=== PATIENT | female | born 1975 | race Caucasian/White ===

== ENCOUNTER 2024-09-12 21:27 | Day surgery (SDC) | payer BC, SELFPAY ==
[2024-09-12 15:50] VITALS: BP 187/105
[2024-09-12 16:11] LABS: % Basophils 0.3 % (0-2); % Eosinophils 2.7 % (0-6); % Immature Granulocytes 0.5 % (0-0.5); % Monocytes 6.1 % (1.7-9.3); % Neutrophils 73.4 % (42.2-75.2); Absolute Eosinophils 0.3 10^3/uL (0-0.7); Absolute Immature Granulocytes 0.1 10^3/uL (0-0.05); Absolute Monocytes 0.7 10^3/uL (0.1-0.6); Absolute Neutrophils 8.6 10^3/uL (1.4-6.5); Hematocrit 32.3 % (37.0-47.0); Hemoglobin 10.5 g/dL (12.0-16.0); Mean Corp Hgb Conc. 32.5 g/dL (33.0-37.0); Mean Corpuscular Hgb 25.2 pg (27.0-31.0); Mean Corpuscular Volume 77.6 fL (81.0-99.0); Mean Platelet Volume 9.2 fL (7.4-10.4); Nucleated Red Blood Cells % 0 %; Platelet Count 255 10^3/uL (130-400); Red Blood Cell Count 4.16 10^6/uL (4.20-5.40); Red Cell Dist. Width 15.4 % (11.5-14.5); White Blood Cell Count 11.7 10^3/uL (4.8-10.8)
[2024-09-12 16:28] LABS: ALT (SGPT) 27 U/L (0-35); AST (SGOT) 21 U/L (14-36); Albumin 4.1 g/dl (3.5-5.0); Alkaline Phosphatase 73 U/L (38-126); Blood Urea Nitrogen 9 mg/dl (7-17); Calcium 9.3 mg/dl (8.4-10.2); Carbon Dioxide 26 mmol/L (22-30); Chloride 107 mmol/L (98-107); Glucose 105 mg/dl (70-99); Lipase 83 U/L (23-300); Potassium 4.1 mmol/L (3.5-5.1); Sodium 140 mmol/L (135-145); Total Bilirubin 0.4 mg/dl (0.2-1.3); Total Protein 6.5 g/dl (6.3-8.2); eGFR > 60.00
[2024-09-12 20:00] VITALS: BP 167/91
[2024-09-12 20:40] VITALS: BMI 39.3
[2024-09-12] MEDS: MERREM 1000 MG IV (20:48)
[2024-09-12] MEDS: DILAUDID 0.5 MG IV (21:00)
--- NOTE | 2024-09-12 21:09 | HPS.HSE ---
Addendum entered and electronically signed by Sven Patel MD 09/13/24 10:28:
I saw and examined the patient independently.
The Welder/Fabricator's note was reviewed and I agree with the note, assessment and plan except where noted below.
Comment: This is a 49-year-old female with medical history of morbid obesity who presents with a 1 week history of abdominal pain. She got an outpatient CT scan on Friday which demonstrated multiple gallstones and a mildly distended gallbladder. I
was able to review her CT imaging with her and her as well as the report through her [facility]. She got an ultrasound here which showed some mild pericholecystic fluid and once again and distended gallbladder. She has a mild leukocytosis
but the remainder of her blood work is normal. On exam she is extremely tender to palpation in the right upper quadrant, and as of this morning febrile and tachycardic concerning for evolving sepsis from acute calculus cholecystitis.
Will plan for a laparoscopic cholecystectomy in the OR today.
N.p.o., IV fluids, IV antibiotics.
Risks/Benefits/Alternatives, expected postoperative course and possible complications (bleeding, infection, injury to surrounding structures, acute/chronic pain) discussed at length. Patient wishes to proceed with surgery. All questions answered.
Consent obtained.
I spent 70 minutes in total for the care of this patient today including direct patient care and counseling, reviewing labs, imaging, coordination of care, as well as documentation.
Original Note:
Family Physician
-
Family Physician: [facility] Dr. Burnett in [place]
Chief Complaint
-
abdominal pain
History of Present Illness
This is a very pleasant 49 year old female with about 10 days worth of abdominal symptoms she originally attributed to anxiety induced discomfort. She started to feel bloated after drinking water and noticed increased symptoms of abdominal fullness,
nausea, pain with radiation to the back. Ibuprofen and dietary adjustments kept her symptoms under control. She followed up with her physician (saw Adeola MORALES) and had a Ct of abdomen this past Friday which found multiple gallstones. She
was told to come to the ED for evaluation with concern for gallstone blocking one of her ducts. She was ruled out prior for UTI and her outpatient blood work showed her iron studies were low again which is chronic problem and she takes prn iron
tablets. During this past week she has been sleeping more than usual and the abdominal pain now presents as a band across her upper abdomen radiating to her back. Minimal PMH with pulmonary or cardiac issues although her bp has been slightly
elevated and she is trending this at home.
Medical History
Past Medical History
Past Medical History: Reports HTN (trending readings twice weekly ) and Other
Additional Past Medical History:
Iron deficiency anemia, chronic R knee osteoarthritis with physical therapy.
Past Surgical History: Reports Appendectomy, (x2) and Gynocological (D+C 2 weeks ago)
Social History
Tobacco: Non-smoker
Alcohol: Occasional
Drug: None
Personal:
Living: With Family
Employment: Employed
Family History
Family History: Not pertinent
Allergies / Home Medications
Allergies reflects when Allergies were last updated in [facility].
Home Medications with original date entered in [facility]
Allergy/Medication List:
Allergies
Allergy/AdvReac Type Severity Reaction Status Date / Time
cefazolin Allergy Nausea / Verified 09/12/24 15:54
Vomiting
Penicillins Allergy Rash Verified 09/12/24 15:54
Sulfa (Sulfonamide Allergy Rash Verified 09/12/24 15:54
Antibiotics)
Tetracyclines Allergy Rash Verified 09/12/24 15:54
Review of Systems
-
History Source: Patient and Coordinated Provider
Constitutional: Reports Fatigue
EENT: Reports No Symptoms
Respiratory: Reports No Symptoms
Cardiac: Reports No Symptoms
Abdomen/GI: Reports Abdominal Pain (transverse upper abdomen radiating to her back)
: Reports No Symptoms
Musculoskeletal: Reports Joint Pain (right knee)
Skin: Reports No Symptoms
Neurological: Reports No Symptoms
Endocrine: Reports No Symptoms
Hematologic/Lymphatic: Reports No Symptoms
Psych: Reports No Symptoms
Physical Exam
Vital Signs
Vital Signs
Temp Pulse Resp BP Pulse Ox
98.1 F 94 18 167/91 97
09/12/24 15:50 09/12/24 15:50 09/12/24 15:50 09/12/24 20:00 09/12/24 20:15
Physical Exam
General: Well Developed, Well Nourished, No Apparent Distress, Comfortable and Conversant
HEENT: NormoCephalic, Moist mucous membranes and Atraumatic
Respiratory: Clear and Non Labored Respirations
Cardiac: S1/S2 and Regular Rhythm
Breast: Deferred by me
GI: Soft and Tender
Rectal: Deferred by Provider
Genito-urinary: Clear Urine
Musculoskeletal: No Clubbing, No Cyanosis and No Edema
Skin: Warm and Dry
Neuro: Awake, AO x 3, No Motor Deficits and Nonfocal/grossly intact
Hematologic/Lymphatic: No Lymphadenopathy
Psych: Calm
Laboratory Results
-
09/12/24 16:04
09/12/24 16:04
Laboratory Results
Total Bilirubin 0.4 mg/dl (0.2-1.3) 09/12/24 16:04
AST 21 U/L (14-36) 09/12/24 16:04
ALT 27 U/L (0-35) 09/12/24 16:04
Alkaline Phosphatase 73 U/L (38-126) 09/12/24 16:04
Lipase 83 U/L (23-300) 09/12/24 16:04
Data Reviewed
-
Diagnostic Radiology: Report Reviewed by me
CT Scan: Other (CT abdomen done outpatient with [place] physician)
Ultrasound: Report Reviewed by me
Lab Data: Labs Reviewed by me
Old Records: Reviewed
Impression/Plan
-
IMPRESSION: acute cholecystitis
PLAN: This is a very pleasant 49 year old female with about 10 days worth of abdominal symptoms she originally attributed to anxiety induced discomfort. She started to feel bloated after drinking water and noticed increased symptoms of abdominal
fullness, nausea, pain with radiation to the back. Ibuprofen and dietary adjustments kept her symptoms under control. She followed up with her physician and had a Ct of abdomen this past Friday which found multiple gallstones. She was told to come
to the ED for evaluation with concern for gallstone blocking one of her ducts. She was ruled out prior for UTI and her outpatient blood work showed her iron studies were low again which is chronic problem and she takes prn iron tablets. During this
past week she has been sleeping more than usual and the abdominal pain now presents as a band across her upper abdomen radiating to her back. Minimal PMH with pulmonary or cardiac issues although her bp has been slightly elevated and she is trending
this at home.
* Acute cholecystitis: NPO, dilaudid IV prn, anti emetic if needed, Zosyn. CBC CMP in am. Will need to obtain CT scan done outpatient.
*HTN: Trend
*insomnia: CBD gummies at home
*Iron def anemia: followed as outpatient. Continue current regimen at [place].
*DVT proph: oob, ambulate, SCDs, Teds.
*Disposition: FC Admit to general surgery service.
[2024-09-12] MEDS: ZOSYN 50 IV (21:49)
[2024-09-12 22:30] VITALS: BP 138/78; BMI 43.8
--- NOTE | 2024-09-12 22:56 | ED.GENMED ---
History of Present Illness
General
Chief Complaint: Abdominal Pain
Source: patient
Exam Limitations: none
Time Seen by Provider: 09/12/24 18:54
Nursing documentation reviewed up to this point in time: agreed with
History of Present Illness
History of Present Illness:
49-year-old female presenting to the emergency department today with concerns of abdominal pain and abnormal findings on CT scan as an outpatient. Has had right upper quadrant Cristobal pain over the past 10 days worsening throughout the day today.
Had an outpatient CT scan yesterday that showed potential gallstones and was told to come to the ER. Has had some nausea no vomiting.
Past History
Past History
ED Past Medical History: None
Social History
Tobacco: Non-smoker
Alcohol: None
Personal:
Living: with family
Employment: Employed
Review of Systems
Review of Systems
Allergies reviewed?: Yes
All Other Systems: ROS reviewed and negative except as documented in HPI and ROS
Phy Exam
Physical Exam
Physical Exam:
GENERAL: Alert , in no apparent distress
EYE: pupils equal and reactive
NECK: Supple, no significant adenopathy.
ENT: o/p clr, mmm.
CARDIAC: Regular rate and rhythm .
LUNGS: Clear breath sounds bilaterally, no acute respiratory distress, no wheezes/rales/rhonchi
ABDOMEN: Right upper quadrant pain positive Coates sign otherwise soft abdomen
NEUROLOGICAL: Alert and oriented, no focal neuro deficits
SKIN: Warm and dry, skin intact.
MUSCULOSKELETAL: No edema, well perfused.
PSYCH: Normal and appropriate interaction.
Course
Orders/Labs/Results
Orders:
Orders
09/12/24 15:59
US Abdomen Complete/Upper Urgent
Comment:
Reason For Exam: known galstones, r/o obstuction
09/12/24 16:04
Complete Blood Count/With Diff Urgent
Comprehensive Metabolic Panel Urgent
Lipase Urgent
09/12/24 20:20
Cefepime HCl [Maxipime] 2,000 mg IV NOW STA
MetroNIDAZOLE 500 MG/100 ML [Flagyl 500 mg] 100 ml IV NOW
09/12/24 20:27
Meropenem [Merrem] 1,000 mg IV NOW STA
09/12/24 20:38
Sterile Water [Sterile Water For Injection] 10 ml .ROUTE .STK-MED ONE
09/12/24 20:41
Admit/Transfer Patient As Directed
Co-Sign Provider:
Level of Care: Observation services
Assign to:: Medical/Surgical
Physician / Group: [facility]/General surgery
Diagnosis: acute cholecystitis
Code Status As Directed
Resuscitation Status: Full Code
PRN Pain Medication Management As Directed
May give lesser potent ordered pain med per pt: Yes
preference::
Protocol:: Medication orders for pain may be administered in a
manner that supports deferring to patient preference
when the pt is:
- Requesting an ordered lesser potent pain medication.
Least to most potent pain medications are defined
as: acetaminophen < NSAID < tramadol < opioids
(morphine, oxycodone, hydromorphone).
- Requesting a lesser dose of the same medication IF
ORDERED.
- Requesting a less intrusive route of administration
if both routes are prescribed by the provider (PO <
IV).
09/12/24 20:50
Sterile Water [Sterile Water For Injection] 20 ml .ROUTE .STK-MED
09/12/24 20:57
HYDROmorphone [Dilaudid] 0.5 mg IV NOW STA
09/12/24 20:58
HYDROmorphone [Dilaudid] 0.5 mg .ROUTE .STK-MED ONE
09/12/24 22:00
Piperacillin/Tazo 3.375 Gram [Zosyn] 3.375 gram in 50 ml IV Q6H
09/12/24 22:20
HYDROmorphone [Dilaudid] 1 mg IV Q2HPRN PRN
Ondansetron Injectable [Zofran] 4 mg IV Q6HPRN PRN
09/12/24 22:20
Activity As Directed
Activity Level: Out of Bed-Early Mobility
Anti-embolism (CLAY) Hose As Directed
Type: Thigh high
Intake/ Output As Directed
Frequency: Per unit guidelines
Pneumatic Compression Sleeves As Directed
Type: Thigh high
Vital Signs As Directed
Frequency: Per unit guidelines
DX Deep Vein Thrombosis Video Routine
09/13/24 Breakfast
NPO
Allow oral meds: No
Allow clear liquids: No
NPO with Ice Chips: No
Complete Blood Count/No Diff IN AM
Comprehensive Metabolic Panel IN AM
Abnormal Lab Results
09/12/24
16:04
WBC 11.7 H 10^3/uL
(4.8-10.8)
RBC 4.16 L 10^6/uL
(4.20-5.40)
Hgb 10.5 L g/dL
(12.0-16.0)
Hct 32.3 L %
(37.0-47.0)
MCV 77.6 L fL
(81.0-99.0)
MCH 25.2 L pg
(27.0-31.0)
MCHC 32.5 L g/dL
(33.0-37.0)
RDW 15.4 H %
(11.5-14.5)
Abs Immat Gran (auto) 0.1 H 10^3/uL
(0-0.05)
Absolute Neuts (auto) 8.6 H 10^3/uL
(1.4-6.5)
Absolute Monos (auto) 0.7 H 10^3/uL
(0.1-0.6)
Lymphocytes % 17.0 L %
(20.5-51.1)
Glucose 105 H mg/dl
(70-99)
09/12/24 16:04
09/12/24 16:04
Vital Signs
Initial and Last Documented VS:
Initial Vital Signs
Temp Pulse Resp BP Pulse Ox
98.1 F 94 18 187/105 99
09/12/24 15:50 09/12/24 15:50 09/12/24 15:50 09/12/24 15:50 09/12/24 15:50
Last Documented Vital Signs
Temp Pulse Resp BP Pulse Ox
100.3 F 114 20 138/78 99
09/12/24 22:30 09/12/24 22:30 09/12/24 22:30 09/12/24 22:30 09/12/24 22:30
MDM/Problems Addressed
MDM/Problems Addressed:
49-year-old female presenting to the emergency department today with concerns of right upper quadrant abdominal pain intermittently over the past 10 days but worsening today. Outpatient CT scan showing concerning findings for gallstones.
Ultrasound showing possible early cholecystitis. Labs showing slight elevation of 11.7 otherwise labs normal. Case discussed with surgery plan to admit for symptom control IV antibiotics and reassessment in the morning.
*Critical Care Note
Total Time (30-74mins, 75-104mins- exclusive of procedures): Not Applicable
ED Attending Note
-
Portions of this chart may have been created with voice recognition software.� Occasional wrong word or��sound alike� substitutions may have occurred due to the inherent limitations of voice recognition software.
Discharge Plan
Departure
Patient Disposition: Admit
Date of Disposition: 09/12/24
Time of Disposition: 22:58
Admit to: Med/Surg
Admit to doctor: Sandeep
Presentation/result/management discussed w/ accepting MD/DO: Gen Surg
Patient with high blood pressure during this ER visit?: No
Condition: Good
Covid-19: Not Applicable
Discharge Problem:
Acute cholecystitis
Interventions
Interventions:
*Risk Screen - Suicide Last Done: 09/12/24 15:58
*General Assessment Last Done: 09/12/24 15:58
*Neglect/Abuse Screening Last Done: 09/12/24 15:58
*ED- Fall Risk Assessment Last Done: 09/12/24 21:02
*ED COVID-19 Vaccine History Last Done: 09/12/24 15:59
*Nursing Disposition Last Done: 09/12/24 22:13
AM-Cbunbv-Fefsjsucvr Assessment Last Done: 09/12/24 20:41
Discharge Date and Time
Discharge Date/Time: 09/12/24 22:38
[2024-09-13] VITALS (17 sets, daily range): BP systolic 30–177; BP diastolic 51–116
[2024-09-13] MEDS: ZOSYN IV (02:43)
[2024-09-13] MEDS: OFIRMEV 100 IV (03:04)
[2024-09-13 05:39] LABS: Glucose - Point of Care 102 mg/dl (70-99)
[2024-09-13] MEDS: ZOFRAN 4 MG IV (05:53)
[2024-09-13] MEDS: NSS 1000 IV ×3 (05:55→21:23)
--- NOTE | 2024-09-13 06:02 | W.PN.UPDATE ---
Update Note
Progress Note Update
Patient found in bed rigoring by nursing staff on rounds. Rectal temp 102F. IV ibuprofen given (ofirmiv given at 0300 for pain-she doesn't tolerate dilaudid) IV abts changed to Levaquin and Flagyl (she has allergies to sulfa, penicillins) she has
taken levaquin in past without problem. NS IVF begun. See Rapid response documentation. Blood cultures and morning labs drawn as previously ordered. Added to telemetry.
[2024-09-13] MEDS: CALDOLOR 104 MG IV (06:06)
--- NOTE | 2024-09-13 06:10 | RR ---
Addendum entered by Mony Farfan 09/13/24 06:30:
lactic 6.2 Pt no longer with rigors HRs 150s on telemetry. PRICING LEAD aware.
Original Note:
Pt found with rigors, HR on pulse ox going up to 160s, unable to obtain BP due to rigors, fingernails cyanotic, LES with mottled appearance. pt appears SOB, vomiting, dizzy. Rectal temp 102. Obtained blood glucose 102, pulse ox 96% applied 2 L NC.
Called rapid response. NSS 125/hr initiated, IV zofran given, labs sent. Pt placed on telemetry.
A Rapid Response was called on this patient, please see Rapid Response form.
[2024-09-13 06:11] LABS: Hematocrit 33.5 % (37.0-47.0); Hemoglobin 10.7 g/dL (12.0-16.0); Mean Corp Hgb Conc. 31.9 g/dL (33.0-37.0); Mean Corpuscular Hgb 24.9 pg (27.0-31.0); Mean Corpuscular Volume 77.9 fL (81.0-99.0); Mean Platelet Volume 9.3 fL (7.4-10.4); Platelet Count 262 10^3/uL (130-400); Red Cell Dist. Width 15.7 % (11.5-14.5); White Blood Cell Count 7.5 10^3/uL (4.8-10.8)
[2024-09-13 06:26] LABS: Lactic Acid 6.2 mmol/L (0.7-2.0)
[2024-09-13] MEDS: FLAGYL 500 MG 100 IV ×2 (06:27→21:23)
[2024-09-13 06:30] LABS: AST (SGOT) 24 U/L (14-36); Albumin 4.4 g/dl (3.5-5.0); Alkaline Phosphatase 99 U/L (38-126); Blood Urea Nitrogen 10 mg/dl (7-17); Calcium 9.2 mg/dl (8.4-10.2); Carbon Dioxide 19 mmol/L (22-30); Chloride 106 mmol/L (98-107); Estimated Creatinine Clearance 98 ml/min; Glucose 137 mg/dl (70-99); Potassium 4.5 mmol/L (3.5-5.1); Sodium 138 mmol/L (135-145); Total Bilirubin 1.3 mg/dl (0.2-1.3); Total Protein 6.6 g/dl (6.3-8.2); eGFR > 60.00
[2024-09-13 06:38] LABS: ALT (SGPT) 35 U/L (0-35)
[2024-09-13] MEDS: LEVAQUIN 100 IV (07:12)
[2024-09-13 07:49] LABS: Lactic Acid 1.9 mmol/L (0.7-2.0)
--- NOTE | 2024-09-13 10:52 | W.SUR.PREOP ---
Pre-Operative Surgical Note
-
I have examined this patient prior to the performance of the scheduled procedure.
The patient's condition is unchanged from the time of the current History and
Physical and the patient is able to undergo the scheduled procedure.
--- NOTE | 2024-09-13 12:53 | CM ---
Patient seen bedside w/ spouse, initial assessment completed. Patient is a 49 year old female with about 10 days worth of abdominal symptoms. Plan for a laparoscopic cholecystectomy in the OR today.
Patient resides w/ spouse and their 2 kids in a 2ST[facility]- 1 step to enter. Independent in all areas, denies any DME use. Denies SNF/HC hx. OP therapy in the past.
Address, point of contact and insurance verified
PCP: Stephanie Burnett
Pharmacy: [facility]
Patient currently admitted as obs. OOBS form verbally reviewed, copy given to patient, copy on chart
Plan: Home, no needs when stable
[2024-09-13] MEDS: FLAGYL 500 MG IV (13:54)
--- NOTE | 2024-09-13 15:52 | W.IMMPOSTOP ---
Surgical Immed Post Op Note
-
Primary Surgeon: Sven Patel MD
Assisting Surgeon: None
Pre-op Diagnosis: Acute cholecystitis
Post-op Diagnosis: Acute cholecystitis, fatty liver disease
Procedure Performed:
1. Laparoscopic cholecystectomy with cholangiogram
2. Liver biopsy
Anesthesia Type: General
Specimen / Cultures:
1. Gallbladder and contents
2. Liver biopsy
Estimated Blood Loss: 51 cc
Complications: None
Operative Findings: Distended, intrahepatic gallbladder with adhesions from the periduodenal fat to the anterior surface. The gallbladder was decompressed and the adhesions were taken down. The liver was markedly enlarged consistent with fatty
liver disease and obscured her view of the cystic triangle which was also markedly inflamed. A top-down cholecystectomy was performed without violation of the gallbladder. The cystic artery was identified and clipped. A ductotomy was made in the
infundibulum of the gallbladder and for gallstones were removed. The gallbladder was controlled distally with a 0 PDS Endoloop and the cystic duct orifice was cannulated with a cholangiocatheter and a cholangiogram was performed. There was
significant spillage however we were able to identify clearly the cystic duct as well as the relevant biliary anatomy. There was no distal obstruction but there was not brisk flow into the duodenum. The duct was isolated and divided with a 0 PDS
Endoloop due to the raw surface ooze Surgiflo was applied over the field. A 19 Chinese round Bhupinder drain was also introduced through the right lateralmost port and placed across the the field. We then turned our attention to the liver which was
large and appeared abnormal on gross inspection consistent with fatty liver disease. A senior sales representative sample of the liver was taken sharply from segment 4b
POST OP PLAN:
Imaging: None
Labs: Routine AM
Diet: Advance to Regular as tolerated
Analgesia: Tylenol 650mg q6 Joann, Olga 5mg q6 PRN, Dilaudid 0.5mg q2h PRN
Neuro/vascular checks: q4h
AC/AP: Hold Therapeutic AC, Ok for DVT PPx
Activity: Ad Ginna
Wound/Incisions/Drains: Routine, PAULO to bulb suction.
Abx would continue antibiotics x 4 days
Dispo: RNF, anticipate discharge home in 1 to 2 days without the drain
--- NOTE | 2024-09-13 16:00 | OR.RPT ---
Operative Report
Operative Report
Patient Name: Day Torres
: 1975
Date of Operation: 09/13/2024
Preoperative Diagnosis: Acute cholecystitis
Postoperative Diagnosis: Acute cholecystitis, fatty liver disease
Procedure(s):
1. Laparoscopic Cholecystectomy with Cholangiogram
2. Liver biopsy
Surgeon(s):
Dr. Patel
Double Cut Sawyer(s):
DEEPA Rice
SUSI Palm
Anesthesia: General
Estimated Blood Loss: 51 cc
Urine Output: None
Drains/Lines/Implants: 19 Eritrean round Bhupinder drain
Specimens:
1. Gallbladder and contents
HPI/Surgical Indications:
This is a 49-year-old female who presents with >8 abdominal pain. Exam, labs and imaging are consistent with acute cholecystitis. Risks/Benefits/Alternatives were discussed at length, and the patient agreed to proceed with surgery.
Operative Findings: Distended, intrahepatic gallbladder with adhesions from the periduodenal fat to the anterior surface. The gallbladder was decompressed and the adhesions were taken down. The liver was markedly enlarged consistent with fatty
liver disease and obscured her view of the cystic triangle which was also markedly inflamed. A top-down cholecystectomy was performed without violation of the gallbladder. The cystic artery was identified and clipped. A ductotomy was made in the
infundibulum of the gallbladder and for gallstones were removed. The gallbladder was controlled distally with a 0 PDS Endoloop and the cystic duct orifice was cannulated with a cholangiocatheter and a cholangiogram was performed. There was
significant spillage however we were able to identify clearly the cystic duct as well as the relevant biliary anatomy. There was no distal obstruction but there was not brisk flow into the duodenum. The duct was isolated and divided with a 0 PDS
Endoloop due to the raw surface ooze Surgiflo was applied over the field. A 19 Eritrean round Bhupinder drain was also introduced through the right lateralmost port and placed across the the field. We then turned our attention to the liver which was
large and appeared abnormal on gross inspection consistent with fatty liver disease. A labor union business representative sample of the liver was taken sharply from segment 4b
Procedure Description:
The patient was brought to the Operating Room and placed in the supine position with one arm tucked. Following uneventful induction of general endotracheal anesthesia, an orogastric tube was placed. The abdomen was prepped and draped in the usual
sterile fashion. A timeout was performed confirming the procedure, consent, and that IV antibiotics were infused and sequential compression devices were confirmed to be on. The abdomen was entered using a left subcostal Veress technique which
required a single pass followed by a 5 mm right upper quadrant Optiview trocar. Pneumoperitoneum to 15 mmHg pressure was obtained without difficulty and we confirmed that no injury had occurred during our entry. The patient was positioned in
reverse Trendelenberg and rotated with the right side up slightly. Two 5 mm trocars were then placed along the right subcostal margin, followed by a 12 mm port in the epigastrium. The gallbladder was emptied using a decompressing needle through
the fundus of the gallbladder with evacuation of hydrops before A locking grasping forceps was placed on the fundus of the gallbladder where it was then retracted cephalad and to the right. There is several adhesions overlying the gallbladder from
the surrounding fat which were carefully lysed with electrocautery and sharp dissection. Due to the size of her liver the cystic triangle could not be easily exposed and there was significant inflammation here so we elected to do a top-down
cholecystectomy. The gallbladder was dissected down to the infundibulum. The cystic artery was identified and controlled with 2 clips. A ductotomy was made in the infundibulum and the gallbladder was controlled distally with a 0 PDS Endoloop. 4
black gallstones were removed and the cystic duct orifice was identified. A cholangiogram was performed which showed no distal filling defects but the duodenum did not fill briskly. The cystic duct appeared to be fairly long so we dissected further
onto the duct to better isolated and ligated it with a 0 PDS Endoloop. The gallbladder bed was inspected and excellent hemostasis was obtained. This was assured by liberal application of Surgiflo over the surgical bed. A 19 Eritrean round Bhupinder
drain was then introduced through the right lateralmost port and secured at the skin with a 0 nylon suture. The gallbladder was extracted through the 12 mm trocar site using an endocatch bag. We then turned our attention to the liver which was very
large and appeared abnormal on gross inspection consistent with fatty liver disease. A labor union business representative sample of the liver was taken sharply with scissors from segment 4B and passed off as a specimen. The biopsy site was cauterized. The abdomen
was again irrigated and excellent hemostasis was assured. All remaining trocars were then removed and the pneumoperitoneum was evacuated. The 12 mm trocar site was closed using 0 PDS suture. All trocar sites were closed at the skin level using
4-0 Monocryl followed by Dermabond. Overall, the patient tolerated the procedure well and was taken to the Recovery Room postoperatively in stable condition.
I was the attending physician and performed the procedure with assistance initially from the 3RD GRADE READING TEACHER above. Faby helped placed ports and begin the initial dissection but Leilani Alonso did come into relieve her and performed mostly assistance in this
challenging case. The assistance of SUSI Palm was required due to the complexity of the procedure. During the procedure Leilani assisted with retraction, resection, and closure of the wounds.. I was present for all portions of the case,
excluding skin closure.
Sven Patel MD
[2024-09-13] MEDS: DILAUDID 0.25 MG IV (16:54)
--- NOTE | 2024-09-13 18:30 | PTCARENOTE ---
Arrived from pacu in bed with 4 lap sites and PAULO drain to RLQ CDI. Call curran within reach.
[2024-09-13] MEDS: DILAUDID 1 MG IV (21:00)
[2024-09-14] VITALS (7 sets, daily range): BP systolic 108–151; BP diastolic 60–85
[2024-09-14] MEDS: DILAUDID 1 MG IV ×2 (00:54→05:00)
[2024-09-14] MEDS: LEVAQUIN 100 IV (05:00)
[2024-09-14] MEDS: FLAGYL 500 MG 100 IV ×3 (05:58→21:12)
[2024-09-14] MEDS: NSS 1000 IV (06:06)
[2024-09-14 09:27] LABS: ALT (SGPT) 56 U/L (0-35); AST (SGOT) 41 U/L (14-36); Albumin 3.3 g/dl (3.5-5.0); Alkaline Phosphatase 93 U/L (38-126); Blood Urea Nitrogen 13 mg/dl (7-17); Calcium 8.2 mg/dl (8.4-10.2); Carbon Dioxide 23 mmol/L (22-30); Chloride 110 mmol/L (98-107); Estimated Creatinine Clearance > 125 ml/min; Glucose 108 mg/dl (70-99); Potassium 4.4 mmol/L (3.5-5.1); Sodium 139 mmol/L (135-145); Total Bilirubin 0.4 mg/dl (0.2-1.3); Total Protein 5.5 g/dl (6.3-8.2); eGFR > 60.00
[2024-09-14 09:36] LABS: % Basophils 0.2 % (0-2); % Immature Granulocytes 0.6 % (0-0.5); % Lymphocytes 8.6 % (20.5-51.1); % Neutrophils 85.6 % (42.2-75.2); Absolute Immature Granulocytes 0.1 10^3/uL (0-0.05); Absolute Lymphocytes 1.1 10^3/uL (1.2-3.4); Absolute Monocytes 0.6 10^3/uL (0.1-0.6); Absolute Neutrophils 10.7 10^3/uL (1.4-6.5); Hematocrit 29.2 % (37.0-47.0); Hemoglobin 9.1 g/dL (12.0-16.0); Mean Corp Hgb Conc. 31.2 g/dL (33.0-37.0); Mean Corpuscular Hgb 24.6 pg (27.0-31.0); Mean Corpuscular Volume 78.9 fL (81.0-99.0); Mean Platelet Volume 9.4 fL (7.4-10.4); Nucleated Red Blood Cells % 0 %; Platelet Count 206 10^3/uL (130-400); White Blood Cell Count 12.5 10^3/uL (4.8-10.8)
--- NOTE | 2024-09-14 09:53 | W.PN.GS2 ---
Today's Communication / Plan
-
Diet ad isaac.
Continue IV fluids .
Continue IV antibiotics, anticipate a 4 to 7-day course postop. Blood cultures positive, will repeat cultures today. Follow-up speciation.
Pain control, nausea control.
Anticipate discharge tomorrow and if drain output stays the same will likely remove prior to discharge.
Assessment / Plan
-
This is a 49-year-old female who presented with a week of worsening abdominal pain, tachycardic and mildly hypotensive on arrival concerning for evolving sepsis found to have a distended gallbladder with gallstones now postoperative day 1 status
post laparoscopic cholecystectomy with cholangiogram and liver biopsy for acute cholecystitis and fatty liver disease respectively. Overall patient recovering as expected.
Diet ad isaac.
Continue IV fluids .
Continue IV antibiotics, anticipate a 4 to 7-day course postop. Blood cultures positive, will repeat cultures today. Follow-up speciation.
Pain control, nausea control.
Anticipate discharge tomorrow and if drain output stays the same will likely remove prior to discharge.
Time Spent
Total Time Spent with Patient (in minutes): 20
Subjective Data
-
Date of Service: September 14, 2024
Interval Events:
No acute events overnight. Slept well. Pain Controlled. Denies Nausea/Vomiting, +bowel function. Tolerating diet, but did not eat much.
Objective Data
-
Intake and Output
09/13/24 09/14/24 09/15/24
06:59 06:59 06:59
Intake Total 1650 / 1650
Output Total 60 / 60
Balance 1590 / 1590
Intake:
IV fluids (Total) 1450 / 1450
Normosol 200 / 200
IV piggybacks 200 / 200
Output:
Drain Output (Total) 60 / 60
Right Abdomen Jerrod-Marte 60 / 60
Other:
Number of approximated MODERATE 2
amounts of urine
Vital Signs
Temp Pulse Resp BP Pulse Ox
98.2 F 73 18 124/67 95
09/14/24 07:30 09/14/24 07:30 09/14/24 07:30 09/14/24 07:30 09/14/24 07:30
Lab Results
09/14/24 08:00
09/14/24 08:00
Calcium 8.2 mg/dl (8.4-10.2) L 09/14/24 08:00
Total Bilirubin 0.4 mg/dl (0.2-1.3) 09/14/24 08:00
AST 41 U/L (14-36) H 09/14/24 08:00
ALT 56 U/L (0-35) H 09/14/24 08:00
Alkaline Phosphatase 93 U/L (38-126) 09/14/24 08:00
Total Protein 5.5 g/dl (6.3-8.2) L 09/14/24 08:00
Albumin 3.3 g/dl (3.5-5.0) L 09/14/24 08:00
Physical Exam
-
GENERAL/NEURO: Awake, Alert, no distress
CHEST: Unlabored breathing on RA
ABDOMEN: Soft, Non-Tender, Non-Distended, incisions clean dry and intact. PAULO serous sang
Patient has a maynard catheter: No
Patient has a central line: No
[2024-09-14] MEDS: ROXICODONE 5 MG PO ×3 (10:14→20:05)
[2024-09-14] MEDS: TYLENOL 1000 MG PO ×2 (12:14→17:28)
[2024-09-14] MEDS: NSS IV (13:49)
[2024-09-14] MEDS: MYLICON 80 MG PO (18:31)
[2024-09-15] MEDS: TYLENOL 1000 MG PO ×3 (00:39→12:13)
[2024-09-15] MEDS: ROXICODONE 5 MG PO (02:01)
[2024-09-15] MEDS: MYLICON 80 MG PO (02:32)
[2024-09-15 03:18] VITALS: BP 123/67
[2024-09-15] MEDS: FLAGYL 500 MG 100 IV ×2 (05:01→14:27)
[2024-09-15] MEDS: LEVAQUIN 100 IV (06:22)
[2024-09-15 07:30] VITALS: BP 139/74
[2024-09-15 07:39] LABS: % Basophils 0.2 % (0-2); % Eosinophils 1.3 % (0-6); % Immature Granulocytes 0.6 % (0-0.5); % Monocytes 5.1 % (1.7-9.3); % Neutrophils 67.8 % (42.2-75.2); Absolute Eosinophils 0.1 10^3/uL (0-0.7); Absolute Immature Granulocytes 0.1 10^3/uL (0-0.05); Absolute Lymphocytes 2.7 10^3/uL (1.2-3.4); Absolute Monocytes 0.6 10^3/uL (0.1-0.6); Absolute Neutrophils 7.4 10^3/uL (1.4-6.5); Hematocrit 26.7 % (37.0-47.0); Hemoglobin 8.2 g/dL (12.0-16.0); Mean Corp Hgb Conc. 30.7 g/dL (33.0-37.0); Mean Corpuscular Hgb 24.2 pg (27.0-31.0); Mean Corpuscular Volume 78.8 fL (81.0-99.0); Mean Platelet Volume 9.6 fL (7.4-10.4); Nucleated Red Blood Cells % 0 %; Platelet Count 233 10^3/uL (130-400); Red Blood Cell Count 3.39 10^6/uL (4.20-5.40); White Blood Cell Count 10.8 10^3/uL (4.8-10.8)
[2024-09-15 08:11] LABS: ALT (SGPT) 39 U/L (0-35); AST (SGOT) 20 U/L (14-36); Albumin 3.1 g/dl (3.5-5.0); Alkaline Phosphatase 86 U/L (38-126); Blood Urea Nitrogen 18 mg/dl (7-17); Calcium 8.3 mg/dl (8.4-10.2); Carbon Dioxide 24 mmol/L (22-30); Chloride 111 mmol/L (98-107); Estimated Creatinine Clearance 112 ml/min; Glucose 85 mg/dl (70-99); Sodium 140 mmol/L (135-145); Total Bilirubin 0.3 mg/dl (0.2-1.3); Total Protein 5.4 g/dl (6.3-8.2); eGFR > 60.00
[2024-09-15 11:36] VITALS: BP 147/89
[2024-09-15 14:02] LABS: % Basophils 0.3 % (0-2); % Eosinophils 2.4 % (0-6); % Immature Granulocytes 0.6 % (0-0.5); % Lymphocytes 28.2 % (20.5-51.1); % Neutrophils 63.5 % (42.2-75.2); Absolute Eosinophils 0.2 10^3/uL (0-0.7); Absolute Immature Granulocytes 0.1 10^3/uL (0-0.05); Absolute Lymphocytes 2.9 10^3/uL (1.2-3.4); Absolute Monocytes 0.5 10^3/uL (0.1-0.6); Absolute Neutrophils 6.5 10^3/uL (1.4-6.5); Hematocrit 28.7 % (37.0-47.0); Hemoglobin 9.1 g/dL (12.0-16.0); Mean Corp Hgb Conc. 31.7 g/dL (33.0-37.0); Mean Corpuscular Hgb 24.9 pg (27.0-31.0); Mean Corpuscular Volume 78.4 fL (81.0-99.0); Mean Platelet Volume 9.3 fL (7.4-10.4); Nucleated Red Blood Cells % 0 %; Platelet Count 234 10^3/uL (130-400); Red Blood Cell Count 3.66 10^6/uL (4.20-5.40); White Blood Cell Count 10.2 10^3/uL (4.8-10.8)
--- NOTE | 2024-09-15 15:04 | W.PN.GS2 ---
Today's Communication / Plan
-
Dispo planning pending hemoglobin
Assessment / Plan
-
This is a 49-year-old female who presented with a week of worsening abdominal pain, tachycardic and mildly hypotensive on arrival concerning for evolving sepsis found to have a distended gallbladder with gallstones now postoperative day 2 status
post laparoscopic cholecystectomy with cholangiogram and liver biopsy for acute cholecystitis and fatty liver disease respectively. Overall patient recovering as expected.
Hemoglobin still dropping down, will repeat this afternoon. If stable will discharge home without a drain.
Diet ad isaac.
Repeat blood cultures negative, will order an additional 4 days of oral Cipro Flagyl.
Pain control, nausea control.
Time Spent
Total Time Spent with Patient (in minutes): 20
Subjective Data
-
Date of Service: September 15, 2024
Interval Events:
No acute events overnight. Slept well. Pain Controlled. Denies Nausea/Vomiting, +bowel function. Tolerating diet.
Objective Data
-
Intake and Output
09/14/24 09/15/24 09/16/24
06:59 06:59 06:59
Intake Total 1650 / 1650
Output Total 60 / 60 60 / 60
Balance 1590 / 1590 -60 / -60
Intake:
IV fluids (Total) 1450 / 1450
Normosol 200 / 200
IV piggybacks 200 / 200
Output:
Drain Output (Total) 60 / 60 60 / 60
Right Abdomen Jerrod-Marte 60 / 60 60 / 60
Other:
Number of approximated SMALL 2
amounts of urine
Number of approximated MODERATE 2
amounts of urine
Vital Signs
Temp Pulse Resp BP Pulse Ox
97.3 F 72 18 147/89 95
09/15/24 11:36 09/15/24 11:36 09/15/24 11:36 09/15/24 11:36 09/15/24 11:36
Lab Results
09/15/24 13:54
09/15/24 07:08
Calcium 8.3 mg/dl (8.4-10.2) L 09/15/24 07:08
Total Bilirubin 0.3 mg/dl (0.2-1.3) 09/15/24 07:08
AST 20 U/L (14-36) 09/15/24 07:08
ALT 39 U/L (0-35) H 09/15/24 07:08
Alkaline Phosphatase 86 U/L (38-126) 09/15/24 07:08
Total Protein 5.4 g/dl (6.3-8.2) L 09/15/24 07:08
Albumin 3.1 g/dl (3.5-5.0) L 09/15/24 07:08
Physical Exam
-
GENERAL/NEURO: Awake, Alert, no distress
CHEST: Unlabored breathing on RA
ABDOMEN: Soft, Non-Tender, Non-Distended, PAULO serosanguineous
Patient has a maynard catheter: No
Patient has a central line: No
--- NOTE | 2024-09-15 15:12 | CM ---
Patient poss d/c today if hgb is stable
No CM needs identified at this time
Plan: Home, no needs
[2024-09-15 15:25] VITALS: BP 160/62
== END 2024-09-15 17:12 | disposition home or self-care (01) ==
LOC: SDS 21:27
PROVIDERS: Emergency Medicine; Registered Nurse; Surgery; ATTENDING PHYSICIAN Surgery; EMERGENCY PHYSICIAN Student in an Organized Health Care Education/Training Program
DX: K80.00 Calculus of gallbladder with acute cholecystitis without obstruction (principal); K76.0 Fatty (change of) liver, not elsewhere classified; B17.9 Acute viral hepatitis, unspecified
CPT/HCPCS: 47563; 88304; 88307; 74300; 76000; 76700; 80053; 82962; 83605; 83690; 85025; 85027; 87040; 87149; 87186; 87205; 88313; 99285; A4300; G0378; J2185